=== PATIENT | male | born 1960 | race Two or more races ===

== ENCOUNTER 2024-06-05 09:31 | Emergency (ER) | payer OTHER ==
[~2024-06-05] VITALS: Ht 177.8 cm; Wt 80.0 kg
[2024-06-05 09:41] VITALS: BP 174/108; PULSE 81; RESP 16; TEMP 98; O2SAT 98
[2024-06-05 10:29] LABS: HEMATOCRIT. 43.2 % (42.0-52.0); HEMOGLOBIN. 14.4 g/dL (14.0-18.0); MEAN CORPUSCULAR HEMOGLOBIN 27.1 pg (28.0-32.0); MEAN CORPUSCULAR HGB CONC 33.5 g/dL (31.0-37.0); MEAN PLATELET VOLUME 8.2 fl (7.4-10.4); PLATELET 168 x1000/uL (130-400); RED BLOOD CELL COUNT 5.33 mill/uL (4.7-6.1); RED CELL DISTRIBUTION WIDTH 13.7 % (11.6-14.6); WHITE BLOOD COUNT 5.9 x1000/uL (4.5-11.0)
[2024-06-05 10:36] LABS: CHLORIDE 102 mEq/L (98-107); POTASSIUM 3.7 mEq/L (3.5-5.1); SODIUM 136 mEq/L (136-145)
[2024-06-05 10:37] LABS: CARBON DIOXIDE 26 mEq/L (21-32)
[2024-06-05 10:38] LABS: CALCIUM 9.4 mg/dL (8.7-10.4)
[2024-06-05 10:39] LABS: DIFFERENTIAL COMMENT 1
[2024-06-05 10:42] LABS: CREATININE 1.4 mg/dL (0.6-1.3); GLUCOSE 115 mg/dL (70-105); UREA NITROGEN BLOOD 17 mg/dL (9-23)
[2024-06-05 10:54] LABS: TROPONIN I HIGH SENSITIVITY < 4 ng/L (3.0-53)
[2024-06-05 11:45] LABS: PLATELET ESTIMATE NORMAL
== END 2024-06-05 13:05 | disposition home or self-care (01) ==
LOC: ER 10:40
DX: R55 Syncope and collapse (principal); E78.5 Hyperlipidemia, unspecified
CPT/HCPCS: 36415; 71045; 80048; 84484; 85025; 99284